=== PATIENT | male | born 1980 | race Caucasian/White ===

== ENCOUNTER 2016-11-22 11:51 | Emergency (ER) | payer OTHER ==
[2016-11-22 16:24] VITALS: BP 133/67
== END 2016-11-22 16:25 | disposition home or self-care (01) ==
LOC: ED 11:51
DX: L02.414 Cutaneous abscess of left upper limb (principal)
CPT/HCPCS: J1885; J2001

== ENCOUNTER 2018-06-08 00:02 | Emergency (ER) | payer OTHER ==
[~2018-06-08] VITALS: Ht 182.9 cm; Wt 90.7 kg
[2018-06-08 00:14] VITALS: Ht 182.9 cm; Wt 90.7 kg
[2018-06-08 08:08] VITALS: BP 121/74
== END 2018-06-08 08:00 | disposition home or self-care (01) ==
LOC: ED 00:02
DX: S52.101A Unspecified fracture of upper end of right radius, initial encounter for closed fracture (principal); S02.2XXA Fracture of nasal bones, initial encounter for closed fracture; V19.9XXA Pedal cyclist (driver) (passenger) injured in unspecified traffic accident, initial encounter; Y93.89 Activity, other specified; Y92.488 Other paved roadways as the place of occurrence of the external cause; Y99.8 Other external cause status
CPT/HCPCS: Q0092

== ENCOUNTER 2018-10-24 11:58 | Emergency (ER) | payer OTHER ==
[~2018-10-24] VITALS: Ht 182.9 cm; Wt 103.0 kg
[2018-10-24 12:01] VITALS: Ht 182.9 cm; Wt 103.0 kg
[2018-10-24 13:03] VITALS: BP 121/70
== END 2018-10-24 13:03 | disposition home or self-care (01) ==
LOC: ED 11:58
DX: M54.42 Lumbago with sciatica, left side (principal); Z98.890 Other specified postprocedural states
CPT/HCPCS: J1885

== ENCOUNTER 2018-10-25 18:47 | Emergency (ER) | payer OTHER ==
[~2018-10-25] VITALS: Ht 182.9 cm; Wt 100.2 kg
[2018-10-25 18:51] VITALS: BP 94/70; Ht 182.9 cm; Wt 100.2 kg
== END 2018-10-25 21:34 | disposition home or self-care (01) ==
LOC: ED 18:47
DX: M54.5 Low back pain (principal); F17.210 Nicotine dependence, cigarettes, uncomplicated
CPT/HCPCS: J1885